=== PATIENT | female | born 1950 | race Caucasian/White ===

== ENCOUNTER → 2017-03-20 | Outpatient (CLI) | payer BC ==
--- NOTE | 2017-03-20 14:10 | CT ---
EXAMINATION TYPE: CT soft tissue neck w con DATE OF EXAM: 03/20/2017 HISTORY: Left sided neck swelling COMPARISON: Neck ultrasound March 10, 2017 CT DLP: 498 mGycm. Automated Exposure Control for Dose Reduction was Utilized. TECHNIQUE: CT scan of the neck is performed with IV Contrast, patient injected with 100 mL of Omnipa que 300, axial images are obtained, coronal and sagittal reformatted images are reviewed. FINDINGS: Airway: There is subcentimeter nodularity or pole level left thyroid seen best on coronal image 32. T here is suspected mild emphysematous change with mild to moderate apical scarring seen bilaterally. Parotid/submandibular glands: No gross abnormality seen. Carotid/Vascular Structures: No significant focal plaque at carotid bulb level bilaterally. There is prominence of the visualized ascending aortic arch measuring up to 3.3 cm in diameter. Ascending aort a is not included to assess for aneurysm. Consider follow-up chest CT to further assess. Osseous Structures: There is loss of normal cervical curvature with slight grade 1 retrolisthesis of C5 on C6. There is mild to moderate disc space narrowing with endplate sclerosis and mild to moderate spurring C5-C6 level. There is left paracentral spur effacing anterior thecal sac T5-T6 level on sag ittal image 35 and axial image 83. Other: There are prominent but subcentimeter lymph nodes throughout the neck bilaterally including in the bilateral axillary regions. Lymph nodes in left neck are more prominent than right neck best see n in the posterior cervical triangle on sagittal image 59.. For reference there is 1.1 x 0.9 cm lymph node in the left neck posterior to submandibular gland on axial image 33 IMPRESSION: Asymmetrically prominent but subcentimeter lymph nodes left neck, nonspecific finding. Ly mphoma cannot be excluded. Need to further investigate by PET CT should be based on clinical and lab correlation.
== END | disposition home or self-care (01) ==
LOC: RADCTMAIN 12:58 → MERGE 13:20
PROVIDERS: ATTEND Nurse Practitioner
DX: R59.1 Generalized enlarged lymph nodes (principal)
CPT/HCPCS: 70491; Q9967

== ENCOUNTER → 2017-03-28 | Outpatient (CLI) | payer BC ==
--- NOTE | 2017-03-31 10:45 | PE ---
Nuclear medicine PET/CT HISTORY: Lymphadenopathy, D 48.7 The patient received 12 mCi F-18 FDG intravenously and delayed scanning was performed from the skull base to the mid thighs. Localization and attenuation correction CT was performed. Correlation to CT scan of the neck 03/20/2017 Neck and chest: Along the anterior cervical chain and submental location multiple lymph nodes show as sociated hypermetabolic uptake. SUV values approximately 4-5.6. Bilateral hypermetabolic uptake noted within the axilla, largest nodes in the right axilla measure 18 mm in short axis. SUV is 8. No media stinal uptake. No evident left lung mass. There is a 6 mm nodule in the right lower lobe on axial amanda ge 94. No corresponding hypermetabolic uptake. No pleural or pericardial effusion. Abdomen pelvis: Retroperitoneal adenopathy is present adjacent to the aorta and inferior vena cava, S UV is approximately 4.9-7.4. Bilateral iliac adenopathy present, bilateral inguinal nodes are presen t with associated hypermetabolic uptake, SUV is 4.5-6.6 IMPRESSION: Extensive lymphadenopathy as described.
== END | disposition home or self-care (01) ==
LOC: RADPETMAIN 12:48
PROVIDERS: ATTEND Family Medicine
DX: D48.7 Neoplasm of uncertain behavior of other specified sites (principal)
CPT/HCPCS: 78815; A9552

== ENCOUNTER → 2020-09-26 | Outpatient (CLI) | payer MEDICARE ==
--- NOTE | 2020-09-26 15:48 | BD ---
EXAMINATION TYPE: Axial Bone Density DATE OF EXAM: 09/26/2020 COMPARISON: NONE CLINICAL HISTORY: 70 YR OLD FEMALE....ICD-10 CODE: M81.0 AGE RELATED OSTEOPOROSIS Height: 61 Weight: 128 FRAX RISK QUESTIONS: 3. Menopause before 45: AT 47 YRS OLD RISK FACTORS HISTORY OF: Postmenopausal woman: YES, AT AGE 47 YRS OLD Hyperparathyroidism: NO Adrenal Insufficiency: NO MEDICATIONS: Prednisone or other steroids: TOPICAL STEROIDS ONLY Additional Medications: BP MEDS, LEXAPRO, HX OF CHEMO AND IMMUNOTHERAPY, STATIN FOR CHOLESTEROL, VIT D Additional History: LOW GRADE TYPE B LYMPHOMA, EXAM MEASUREMENTS: Bone mineral densitometry was performed using the [employer] System. Bone mineral density as measured about the Lumbar spine is: ----- L1-L4(G/cm2): 0.950 T Score Values are as follows: ----- L1: -2.4 ----- L2: -2.6 ----- L3: -1.9 ----- L4: -1.3 ----- L1-L4: -1.9 Bone mineral density FIRST DEXA STUDY AT [facility] Bone mineral density about the R hip (g/cm2): 0.815 Bone mineral density about the L hip (g/cm2): 0.820 T Score values are as follows: -----R Neck: -1.9 -----L Neck: -2.1 -----R Total: -1.5 -----L Total: -1.5 Bone mineral density FIRST DEXA STUDY AT [facility] FRAX5s: THERE IS A 12.2% CHANCE FOR A MAJOR OSTEOPOROTIC FX AND A 2.4% FOR HIP......PROBABILITY FOR FX IN 10 YRS TIME IMPRESSION: Osteopenia (T Score between -2.5 and -1). There is slightly increased risk of fracture and the patient may be considered for treatment. Re-Screen 2-5 years. NOTE: T-SCORE=SD OF THE YOUNG ADULT MEAN.
== END | disposition home or self-care (01) ==
LOC: RADBDWWP 09:40
PROVIDERS: ATTEND Internal Medicine
DX: M85.80 Other specified disorders of bone density and structure, unspecified site (principal); M81.0 Age-related osteoporosis without current pathological fracture
CPT/HCPCS: 77080

== ENCOUNTER → 2020-10-01 | Outpatient (CLI) | payer MEDICARE ==
--- NOTE | 2020-10-22 08:30 | MM ---
Reason for exam: screening (asymptomatic). History: Patient is postmenopausal and history of other cancer. Benign excisional biopsy of both breasts. Took hormonal contraceptives for 20 years. Physical Findings: A clinical breast exam by your physician is recommended on an annual basis and results should be correlated with mammographic findings. MG 3D Screening Mammo W/Cad Bilateral CC and MLO view(s) were taken. No prior studies available for comparison. There are scattered fibroglandular densities. Central asymmetric density right CC view anterior to middle depth partially disperses on 3D. As no priors are available for comparison, additional spot views are recommended. ASSESSMENT: Incomplete: need additional imaging evaluation, BI-RAD 0 RECOMMENDATION: Special view mammogram of the right breast. (3D) If lesion persists on supplemental views, image directed ultrasound is recommended. [facility] will attempt to contact patient to return for supplemental views and ultrasound if indicated.
== END | disposition home or self-care (01) ==
LOC: RADMAMWWP 12:49
PROVIDERS: ATTEND Internal Medicine
DX: Z12.31 Encounter for screening mammogram for malignant neoplasm of breast (principal); Z78.0 Asymptomatic menopausal state
CPT/HCPCS: 77063; 77067

== ENCOUNTER → 2020-11-02 | Outpatient (CLI) | payer MEDICARE ==
--- NOTE | 2020-11-05 10:15 | MM ---
Reason for exam: additional evaluation requested from abnormal screening. Last mammogram was performed 1 month ago. History: Patient is postmenopausal and history of other cancer. Benign excisional biopsy of both breasts. Took hormonal contraceptives for 20 years. Physical Findings: Nurse did not find any significant physical abnormalities on exam. MG 3D Work Up W/Cad RT Spot compression CC, spot compression MLO, ML, and CCRL view(s) were taken of the right breast. Prior study comparison: October 01, 2020, bilateral MG 3d screening mammo w/cad. The breast tissue is heterogeneously dense. This may lower the sensitivity of mammography. The central CC asymmetric density disperses on additional views. No significant new findings when compared with previous films. These results were verbally communicated with the patient and result sheet given to the patient on 11/02/20. ASSESSMENT: Negative, BI-RAD 1 RECOMMENDATION: Return to routine screening mammogram schedule for both breasts.
== END | disposition home or self-care (01) ==
LOC: RADMAMWWP 14:51
PROVIDERS: ATTEND Internal Medicine
DX: N64.89 Other specified disorders of breast (principal); Z78.0 Asymptomatic menopausal state
CPT/HCPCS: 77065; G0279; 77061

== ENCOUNTER → 2023-02-26 | Outpatient (CLI) | payer MEDICARE ==
[2023-02-26 12:59] LABS: African American GFR (CKD) >90 (>60 ml/min/1.73 sqM); Blood Urea Nitrogen 15 mg/dL (7-17); Non-African American GFR(CKD) >90 (>60 ml/min/1.73 sqM)
--- NOTE | 2023-02-26 19:59 | CT ---
EXAMINATION TYPE: CT chest w con DATE OF EXAM: 02/26/2023 COMPARISON: None HISTORY: Lung nodule. No concerns. Note: Contrast approx 25 ml extravasated in RT wrist. Rad RN/Dr. Homero villegas notified CT DLP: 160.90 mGycm, Automated exposure control for dose reduction was used. CONTRAST: Performed injected with 100 mL of Isovue 300. Approximately 25 went subcutaneous. TECHNIQUE: Axial images were obtained at 5 mm thick sections. Reconstructed images are reviewed on Inuvo computer in the coronal plane. FINDINGS: Portion of the thyroid visualized is normal. There is a 0.2 cm nodule in the periphery of the left lung. Series 5 image 41. There is a 0.5 cm nodu le in the posterior lateral right lung. Series 5 image 36. There is a 0.6 posterior pleural-based den sity within the inferior right medial lung base. Series 5 image 41 No enlarged mediastinal or hilar adenopathy is evident. The ascending aorta diameter at the level o f the main pulmonary artery is 3.8 cm. The main pulmonary artery diameter at the bifurcation is 2.[address] sections are obtained through the upper abdomen. Abdomen is essentially unremarkable. IMPRESSIONS: 1. Scattered small nodules. Follow-up at bedtime 6 months is recommended
== END | disposition home or self-care (01) ==
LOC: RADCTMAIN 11:49
PROVIDERS: ATTEND Internal Medicine
DX: R91.8 Other nonspecific abnormal finding of lung field (principal)
CPT/HCPCS: 82565; 84520; 71260; 36415; Q9967

== ENCOUNTER → 2023-03-17 | Outpatient (CLI) | payer MEDICARE ==
--- NOTE | 2023-03-17 09:46 | BD ---
EXAMINATION TYPE: Axial Bone Density DATE OF EXAM: 03/17/2023 CLINICAL HISTORY: 72 years old Female. ICD-10 CODE: M85.851 Osteopenia Height: Weight: FRAX RISK QUESTIONS: Glucocorticoids (More than 3mos): yes (Ex: prednisone, prednisolone, methylprednisolone, dexamethasone, and hydrocortisone). 3. Menopause before 45: at 47 RISK FACTORS HISTORY OF: Postmenopausal woman: yes, 47 ys old Hyperparathyroidism: no Adrenal Insufficiency: no MEDICATIONS: Prednisone or other steroids: topical Osteoporosis Medications: androstane weekly for about 10 yrs Additional Medications: bp meds, lexapro, hx of chemo and immunotherapy treatment, statin for cholest kim, vit d, Additional History: low grade type b lymphoma, EXAM MEASUREMENTS: Bone mineral densitometry was performed using the [employer] System. Bone mineral density as measured about the Lumbar spine is: ----- L1-L4(G/cm2): 1.020 T Score Values are as follows: ----- L1: -1.5 ----- L2: -3.0 ----- L3: -1.3 ----- L4: -0.3 ----- L1-L4: -1.3 Z Score Values are as follows: ----- L1: 0.3 ----- L2: -1.2 ----- L3: 0.6 ----- L4: 1.5 ----- L1-L4: 0.5 Bone mineral density has: Increased 7.4% since study of: 09.26.2020 Bone mineral density about the R hip (g/cm2): 0.855 Bone mineral density about the L hip (g/cm2): 0.870 T Score values are as follows: -----R Neck: -1.5 -----L Neck: -1.8 -----R Total: -1.2 -----L Total: -1.1 Z Score values are as follows: -----R Neck: 0.3 -----L Neck: 0.0 -----R Total: 0.4 -----L Total: 0.5 Bone mineral density has: Increased 5.4% since study of: 09.26.2020 FRAX%s: The graph provided illustrates a 17.6% chance for a major osteoporotic fx and a 3.7% chance f or the hips probability for fx in 10 years time. IMPRESSION: Osteopenia (T Score between -2.5 and -1). There is slightly increased risk of fracture and the patient may be considered for treatment. Re-Screen 2-5 years. NOTE: T-SCORE=SD OF THE YOUNG ADULT MEAN.
--- NOTE | 2023-03-19 00:29 | MM ---
Reason for Exam: Screening (asymptomatic). Last mammogram was performed 2 year(s) and 5 month(s) ago. Patient History: Menarche at age 15. First Full-Term at age 35. Late child-bearing (after 30). Postmenopausal. Patient has history of breast feeding. Patient used Hormonal Contraceptives for 20 years. Bilateral Benign Excisional Biopsy. Risk Values: Fadumo 5 year model risk: 2.8%. NCI Lifetime model risk: 8.1%. Prior Study Comparison: 10/01/2020 Bilateral Screening Mammogram, [facility]. 11/02/2020 Right Diagnostic Mammogram, [facility]. Tissue Density: There are scattered fibroglandular densities. Findings: Analyzed By CAD. There is no suspicious group of microcalcifications or new suspicious mass in either breast. Overall Assessment: Negative, BI-RAD 1 Management: Screening Mammogram of both breasts in 1 year. . Patient should continue monthly self-breast exams. A clinical breast exam by your physician is recommended on an annual basis. This exam should not preclude additional follow-up of suspicious palpable abnormalities. Note on Fadumo scores and lifetime risk: 1. A Fadumo score greater than 3% is considered moderate risk. If this is the case, consider specialist referral to assess eligibility for a risk reducing agent. 2. If overall lifetime risk for the development of breast cancer is 20% or higher, the patient may qualify for future screening with alternating mammogram and breast MRI. Electronically signed and approved by: Rangel Briones M.D. Radiologist
== END | disposition home or self-care (01) ==
LOC: RADMAMWWP 07:10
PROVIDERS: ATTEND Internal Medicine
DX: Z12.31 Encounter for screening mammogram for malignant neoplasm of breast (principal); M85.89 Other specified disorders of bone density and structure, multiple sites; Z78.0 Asymptomatic menopausal state; Z79.52 Long term (current) use of systemic steroids
CPT/HCPCS: 77063; 77067; 77080

== ENCOUNTER → 2024-02-29 | Outpatient (CLI) | payer MEDICARE | END | disposition home or self-care (01) | LOC: LABPRL 10:47 | PROVIDERS: ATTEND Internal Medicine | DX: N39.0 Urinary tract infection, site not specified (principal); R31.9 Hematuria, unspecified | CPT/HCPCS: 87086 ==

== ENCOUNTER → 2024-03-24 | Outpatient (CLI) | payer MEDICARE ==
[2024-03-24 08:38] LABS: African American GFR (CKD) >90 (>60 ml/min/1.73 sqM); Blood Urea Nitrogen 9 mg/dL (7-17); Non-African American GFR(CKD) >90 (>60 ml/min/1.73 sqM)
--- NOTE | 2024-03-24 10:50 | CT ---
EXAMINATION TYPE: CT chest w con DATE OF EXAM: 03/24/2024 COMPARISON: 02/26/2023 HISTORY: PULMONARY NODULE CT DLP: 133.2 mGycm Automated exposure control for dose reduction was used. TECHNIQUE: CT scan of the chest is performed with IV Contrast, patient injected with 100 mL of Isovue 300. MIP Images are created on CT scanner and reviewed. 3D reconstructed images are created on an independent workstation and reviewed. FINDINGS: The 5 mm right lower lobe pulmonary nodule stable. The 2 to 3 mm subpleural parenchymal left lower lo be pulmonary nodule stable. No new nodules are seen. Subpleural parenchymal nodule in the right poste rior lung base is stable as well. There is no new or suspicious nodule. There are no growing nodules. There is no airspace consolidation or abnormal interstitial density. There is no pleural effusion or pneumothorax. The great vessels chest are normal and there is no mediastinal, hilar or axillary adenopathy. Limited scanning through the upper abdomen reveals no gross abnormality. No focal osseous lesions are seen. IMPRESSION: 1. Stable lung nodules as described above. No new or suspicious lung nodule. 2. No acute cardiopulmonary disease. 3. If this is a high risk patient, then routine screening at yearly intervals is recommended.
--- NOTE | 2024-03-24 12:41 | CA ---
Transthoracic Echo Report Name: Ana Guerra Age: 73 Gender: F : 1950 Exam Date: 03/24/2024 09:27 Exam Location: [facility] Ht (in): 62 Wt (lb): 126 Ordering Physician: Tonia Potter MD Attending/Referring Phys: Advertising Traffic Manager Jennifer Souza RDCS Procedure CPT: Indications: R55 Syncope Cardiac Hx: Technical Quality: Fair Contrast 1: Total Dose (mL): Contrast 2: Total Dose (mL): MEASUREMENTS (Male / Female) Normal Values 2D ECHO LV Diastolic Diameter PLAX 4.1 cm 4.2 - 5.9 / 3.9 - 5.3 cm LV Systolic Diameter PLAX 2.9 cm IVS Diastolic Thickness 1.1 cm 0.6 - 1.0 / 0.6 - 0.9 cm LVPW Diastolic Thickness 0.9 cm 0.6 - 1.0 / 0.6 - 0.9 cm LV Relative Wall Thickness 0.5 RV Internal Dim ED PLAX 3.4 cm LA Volume 27.9 cm??? 18 - 58 / 22 - 52 cm??? LA Volume Index 17.6 cm???/m??? 16 - 28 cm???/m??? M-MODE Aortic Root Diameter MM 2.8 cm LA Systolic Diameter MM 3.5 cm LA Ao Ratio MM 1.2 AV Cusp Separation MM 1.6 cm DOPPLER AV Peak Velocity 114.9 cm/s AV Peak Gradient 5.3 mmHg AV Mean Velocity 87.3 cm/s AV Mean Gradient 3.3 mmHg AV Velocity Time Integral 24.3 cm LVOT Peak Velocity 93.1 cm/s LVOT Peak Gradient 3.5 mmHg LVOT Velocity Time Integral 21.4 cm MV Area PHT 3.7 cm??? Mitral E Point Velocity 63.8 cm/s Mitral A Point Velocity 96.5 cm/s Mitral E to A Ratio 0.7 MV Deceleration Time 207.6 ms MV E' Velocity 6.4 cm/s Mitral E to MV E' Ratio 10.0 TR Peak Velocity 238.4 cm/s TR Peak Gradient 22.7 mmHg Right Ventricular Systolic Press 27.6 mmHg FINDINGS Left Ventricle Mildly increased left ventricular wall thickness. Left ventricular cavity size normal. Normal left ventricular systolic function with no obvious regional wall motion abnormalities. Left ventricular ejection fraction is estimated at 55-60 %. Normal left ventricular diastolic filling pattern. Right Ventricle Normal right ventricular size and function. Right ventricular systolic pressure within normal limits. Right Atrium Normal right atrial size. Left Atrium Normal left atrial size. Mitral Valve Structurally normal mitral valve. Mitral valve thickened. Mild mitral annular calcification. Mild mitral regurgitation. Aortic Valve Trileaflet aortic valve. No aortic valve stenosis or regurgitation. Tricuspid Valve Structurally normal tricuspid valve. Mild tricuspid regurgitation. Pulmonic Valve Structurally normal pulmonic valve. Pericardium No pericardial effusion. Aorta Normal size aortic root and proximal ascending aorta. CONCLUSIONS Normal LV size and systolic function. There is mild mitral and tricuspid regurgitation. No pulmonary hypertension. No pericardial effusion Previewed by: Dr. Chichi Hunt MD (Electronically Signed) Final Date: 24 March 2024 12:40
--- NOTE | 2024-03-24 13:01 | US ---
EXAMINATION TYPE: US carotid duplex BILAT DATE OF EXAM: 03/24/2024 COMPARISON: NONE CLINICAL INDICATION: Female, 73 years old with history of R55 syncope; HTN- on meds. No hx TIA. TECHNIQUE: Carotid duplex ultrasound examination. Indirect Doppler criteria was utilized. FINDINGS: EXAM MEASUREMENTS: RIGHT: Peak Systolic Velocity (PSV) cm/sec ----- Right CCA: 69.4 ----- Right ICA: 65.8 ----- Right ECA: 48.8 ICA/CCA ratio: 0.9 RIGHT: End Diastole cm/sec ----- Right CCA: 25.8 ----- Right ICA: 27.4 ----- Right ECA: 11.3 LEFT: Peak Systolic Velocity (PSV) cm/sec ----- Left CCA: 65.1 ----- Left ICA: 86.4 ----- Left ECA: 60.2 ICA/CCA ratio: 1.3 LEFT: End Diastole cm/sec ----- Left CCA: 20.6 ----- Left ICA: 34.7 ----- Left ECA: 13.2 VERTEBRALS (direction of flow): Right Vertebral: Antegrade Left Vertebral: Antegrade Rhythm: Normal BARK FITTER NOTES: No elevated velocities or significant stenosis. No wall thickening. IMPRESSION: No hemodynamically significant internal carotid artery stenosis on either side. Criteria for Assigning % of Stenosis / Diameter reduction (Estimation based on the indirect measurements of the internal carotid artery velocities (ICA PSV). 1. Normal (no stenosis)=ICA PSV < 125 cm/s: ratio < 2.0: ICA EDV<40 cm/s. 2. Less than 50% stenosis=ICA PSV < 125 cm/s: ratio < 2.0: ICA EDV<40 cm/s. 3. 50 to 69% stenosis=ICA PSV of 125 to 230 cm/s: ration 2.0 ? 4.0: ICA EDV 40-100 cm/s. 4. Greater than 70% stenosis to near occlusion= ICA PSV > 230 cm/s: ratio > 4.0: ICA EDV > 100 cm/s. 5. Near occlusion= ICA PSV velocities may be low or undetectable: variable ratio and ICA EDV. 6. Total occlusion=unable to detect flow.
--- NOTE | 2024-04-18 09:40 | MM ---
Reason for Exam: Screening (asymptomatic). Last mammogram was performed 1 year(s) and 1 month(s) ago. Patient History: Menarche at age 15. First Full-Term at age 35. Late child-bearing (after 30). Postmenopausal. Patient has history of breast feeding. Patient used Hormonal Contraceptives for 20 years. Bilateral Benign Excisional Biopsy. Risk Values: Fadumo 5 year model risk: 2.8%. NCI Lifetime model risk: 7.8%. Prior Study Comparison: 10/01/2020 Bilateral Screening Mammogram, [facility]. 11/02/2020 Right Diagnostic Mammogram, [facility]. 03/17/2023 Bilateral MG 3D screening mammo w/cad, [facility]. Tissue Density: There are scattered areas of fibroglandular density. Findings: Right breast: There is no suspicious group of microcalcifications or new suspicious mass. Left breast: There is no suspicious group of microcalcifications or new suspicious mass. Overall Assessment: Negative, BI-RAD 1 Management: Screening Mammogram of both breasts in [address] [facility] will attempt to contact patient to return for supplemental views and ultrasound if indicated. Patient should continue monthly self-breast exams. A clinical breast exam by your physician is recommended on an annual basis. This exam should not preclude additional follow-up of suspicious palpable abnormalities. Note on Fadumo scores and lifetime risk: 1. A Fadumo score greater than 3% is considered moderate risk. If this is the case, consider specialist referral to assess eligibility for a risk reducing agent. 2. If overall lifetime risk for the development of breast cancer is 20% or higher, the patient may qualify for future screening with alternating mammogram and breast MRI. [facility], , 04/18/2024 9:17 AM. Electronically signed and approved by: Anmol Gamino DO
== END | disposition home or self-care (01) ==
LOC: RADECHMAIN 07:52
PROVIDERS: ATTEND Internal Medicine
DX: Z12.31 Encounter for screening mammogram for malignant neoplasm of breast (principal); I34.0 Nonrheumatic mitral (valve) insufficiency; I36.1 Nonrheumatic tricuspid (valve) insufficiency; I10 Essential (primary) hypertension; R91.8 Other nonspecific abnormal finding of lung field; R92.323 Mammographic fibroglandular density, bilateral breasts; R55 Syncope and collapse; Z78.0 Asymptomatic menopausal state
CPT/HCPCS: 36415; 71260; 77063; 77067; 82565; 84520; 93270; 93306; 93880

== ENCOUNTER → 2024-12-07 | Outpatient (CLI) | payer MEDICARE ==
[2024-12-07 11:02] VITALS: BP 117/79; PULSE 88; RESP 12; TEMP 98.2
--- NOTE | 2024-12-07 11:31 | P.SLEEP ---
History of Present Illness DATE: 12/07/2024 CONSULTATION/NEW PATIENT EVALUATION HISTORY OF PRESENT ILLNESS/SLEEP-WAKE EVALUATION: 74-year-old lady had been e valuated in the sleep center for possible obstructive sleep apnea hypopnea syndrome. SLEEP SCHEDULE: Usually sleep schedule from 9 PM to 6 AM. FALLING ASLEEP: Sometimes patient has difficulties to fall asleep, has TV set in bedroom. DURING SLEEP: Patient usually sleeps on the side position with loud snoring and awakenings from sleep 3 times with 2 episodes of nocturia. No history of hypnogogical hallucinations, sleep paralysis, or cataplexy. DURING THE DAY/WAKE STATE: In the morning patient wake up tired. [place] sleepiness scale is 6. Usually patient does not take naps. PAST MEDICAL HISTORY: Hypertension, hyperlipidemia. PAST SURGICAL HISTORY: Bilateral surgical treatment for carpal tunnel syndrome. MEDICATIONS: Please see below. SOCIAL HISTORY: Please see below. FAMILY HISTORY: Please see below. REVIEW OF SYSTEMS: Loud snoring, multiple awakenings from sleep. No fevers. No double vision. No recent chest pain. No shortness of breath. No abdominal pain. No bleeding episodes. No blood in urine. No seizure episodes. PHYSICAL EXAMINATION: GENERAL: A pleasant patient without any distress. VITAL SIGNS: Weight is 117.6 pounds, BMI 22.1. HEENT: PERRLA, EOMI. Evaluation of oropharynx showed tongue protrudes midline, low position of soft palate Mallampati 4. NECK: Supple. No JVD. Thyroid is not palpable. 12 one quarter inches in circumference. LUNGS: Clear to percussion and to auscultation. Good air exchange. No wheezing or rhonchi. HEART: S1, S2 regular. No murmurs, gallops or rubs. ABDOMEN: Soft and nontender. Bowel sounds are present. No organomegaly a ppreciated. EXTREMITIES: No clubbing or cyanosis. MACHINE MAINTENANCE SUPERVISOR: Awake, alert, and oriented x3. Cranial nerves 2 to 7 intact. There is no fasciculation or atrophy noted. No focal deficits observed. ASSESSMENT: 1. Loud snoring, multiple awakenings from sleep, extremely low position of soft palate Mallampati 4. Obstructive sleep apnea hypopnea syndrome. 2. Hypertension. 3. Hyperlipidemia. 4. Status post surgical treatment for carpal tunnel syndrome bilaterally. PLAN: 1. Polysomnography for evaluation of patient's breathing during sleep. 2. Following plan after reading sleep study. 3. Preferable position during sleep on the side. 4. No driving if patient feels any sleepiness. Patient is aware of civil and criminal liability for unsafe driving. 5. Sleep hygiene with regular sleep time for at least 7.5-8 hours. 6. Watching weight. Thank you very much for referring this patient for consultation. Sincerely, Jag Colindres MD, PhD, FAASM. Diplomat of [place] [employer], Sleep Medicine Board by [place] [employer] [employer] Senior Portfolio Analyst of [facility] [place] cc: Tonia Potter MD Past Medical History Past Medical History: Hyperlipidemia, Hypertension History of Any Multi-Drug Resistant Organisms: None Reported Past Surgical History: Orthopedic Surgery Additional Past Surgical History / Comment(s): carpal tunnel surgery ulner nerve Past Anesthesia/Blood Transfusion Reactions: No Reported Reaction Past Psychological History: No Psychological Hx Reported Smoking Status: Never smoker Past Alcohol Use History: None Reported Past Drug Use History: None Reported Medications and Allergies Home Medications Medication Instructions Recorded Confirmed Type Atorvastatin [Lipitor] 10 mg PO DAILY 12/07/24 12/07/24 History lisinopriL [Zestril] 10 mg PO DAILY 12/07/24 12/07/24 History Physical Exam Vitals: Vital Signs Temp Pulse Resp BP Pulse Ox 12/07/24 11:01 98.2 F 88 12 117/79 98 Intake and Output 12/06/24 12/07/24 12/07/24 22:59 06:59 14:59 Other: Weight 53.07 kg Sleep Note - Sleep Data ESS Total: 6 - Sleep Note Sleep Note: Temperature: 98.2 F Pulse Rate: 88 Respiratory Rate: 12 Blood Pressure: 117/79 SpO2: 98 Height: 5 ft 1 in Weight: 53.07 kg BMI: Neck Circumference: 12.2
== END ==
LOC: 3 N SLEEP 10:18
PROVIDERS: ATTEND Internal Medicine
DX: G47.33 Obstructive sleep apnea (adult) (pediatric) (principal); I10 Essential (primary) hypertension; E78.5 Hyperlipidemia, unspecified; Z98.890 Other specified postprocedural states
CPT/HCPCS: 99211